=== PATIENT | female | born 1980 | race African-American/Black ===

== ENCOUNTER 2017-05-11 02:45 | Emergency (ER) | payer OTHER ==
--- NOTE | 2017-05-11 03:11 | PDOC ---
History of Present Illness - General Exam Limitations: No Limitations - History of Present Illness Initial Comments: 05/11/17 03:55 Patient is a 36 year old female with a significant past medical history of Pheochromocytoma who presents to the ED with complaints of intermittent chest pain that began 2 weeks ago. Patient reports chest pain began 2 weeks ago, but did not come to ED for evaluation because she did not believe it ot be severe a its initial start. She reports chest pain is a stabbing, midsternal chest pain rated an 8/10 at its worst and 4/10 when beginning to subside. Patient reports chest pain is currently rated at a 3/10 but states initially was intense enough to wake her from sleep, prompting her to visit the ED for evaluation. Patient reports having both fallopian tubes removed and does not believe is . Denies SOB. Denies fever, chills. Denies contact with sick individuals, out of state travel. Denies nausea, vomiting. Denies any other symptoms. Allergies: None Social history: No smoking. No alcohol. No illicit drugs. Surgical history cholecystectomy, pheochromocytoma in past - s/p resection PMD: Not on staff <Harpreet Prieto - Last Filed: 05/11/17 05:57> - General History Source: Patient <JulienReed sharp - Last Filed: 05/11/17 06:00> - General Stated Complaint: CHEST DISCOMFORT Time Seen by Provider: 05/11/17 02:52 Past History <Harpreet Prieto - Last Filed: 05/11/17 05:57> - Past Medical History Asthma: No Cancer: No Cardiac Disorders: No Diabetes: No HTN: No Seizures: No Thyroid Disease: No - Surgical History Cholecystectomy: Yes (2000) - Reproductive History (#): 5 Para: 2 Cervical CA: No Dysfunctional Uterine Bleeding: No Ectopic : No Endometrial CA: No Polycystic Ovaries: Yes Therapeutic (s) & number: Yes (1) Tubal Ligation: No Spontaneous : 3 - Suicide/Smoking/Psychosocial Hx Smoking Status: No Smoking History: Never smoked Have you smoked in the past 12 months: No Number of Cigarettes Smoked Daily: 0 Hx Alcohol Use: No Drug/Substance Use Hx: No Substance Use Type: None Hx Substance Use Treatment: No <Reed Akins - Last Filed: 05/11/17 06:00> - Past Medical History Allergies/Adverse Reactions: Allergies Allergy/AdvReac Type Severity Reaction Status Date / Time No Known Allergies Allergy Verified 05/11/17 03:14 Review of Systems - Review of Systems Able to Perform ROS?: Yes Comments:: 05/11/17 03:55 CONSTITUTIONAL: Absent: fever, chills, diaphoresis, generalized weakness, malaise, loss of appetite HEENT: Absent: rhinorrhea, nasal congestion, throat pain, throat swelling, difficulty swallowing, mouth swelling, ear pain, eye pain, visual Changes CARDIOVASCULAR: +Chest pain. Absent: syncope, palpitations, irregular heart rate, lightheadedness, peripheral edema RESPIRATORY: Absent: cough, shortness of breath, dyspnea with exertion, orthopnea, wheezing, stridor, hemoptysis GASTROINTESTINAL: Absent: abdominal pain, abdominal distension, nausea, vomiting, diarrhea, constipation, melena, hematochezia GENITOURINARY: Absent: dysuria, frequency, urgency, hesitancy, hematuria, flank pain, genital pain MUSCULOSKELETAL: Absent: myalgia, arthralgia, joint swelling SKIN: Absent: rash, itching, pallor HEMATOLOGIC/IMMUNOLOGIC: Absent: easy bleeding, easy bruising, lymphadenopathy, frequent infections ENDOCRINE: Absent: unexplained weight gain, unexplained weight loss, heat intolerance, cold intolerance NEUROLOGIC: Absent: headache, focal weakness or paresthesias, dizziness, unsteady gait, seizure, mental status changes, bladder or bowel incontinence PSYCHIATRIC: Absent: anxiety, depression, suicidal or homicidal ideation, hallucinations. All Other Systems: Reviewed and Negative <Harpreet Prieto - Last Filed: 05/11/17 05:57> *Physical Exam - Vital Signs Last Vital Signs Temp Pulse Resp BP Pulse Ox 75 18 106/67 100 05/11/17 02:45 05/11/17 02:45 05/11/17 02:45 05/11/17 02:45 - Physical Exam Comments: 05/11/17 03:55 GENERAL: Well developed, well nourished. Awake and alert. In no acute distress. HEENT: Normocephalic, atraumatic. PERRLA, EOMI. No conjunctival pallor. Sclerae are non -icteric. Moist mucous membranes. Oropharynx is clear. NECK: Supple. Full ROM. No JVD. Carotid pulses 2+ and symmetric, without bruits. No thyromegaly. No lymphadenopathy. CARDIOVASCULAR: Regular rate and rhythm. No murmurs, rubs, or gallops. Distal pulses are 2+ and symmetric. PULMONARY: No evidence of respiratory distress. Lungs clear to auscultation bilaterally. No wheezing, rales or rhonchi. ABDOMINAL: Soft. Non-tender. Non-distended. No rebound or guarding. No organomegaly. Normoactive bowel sounds. MUSCULOSKELETAL Normal range of motion at all joints. No bony deformities or tenderness. No CVA tenderness. EXTREMITIES: No cyanosis. No clubbing. No edema. No calf tenderness. SKIN: Warm and dry. Normal capillary refill. No rashes. No jaundice. NEUROLOGICAL: Alert, awake, appropriate. Cranial nerves 2-12 intact. No deficits to light touch and temperature in face, upper extremities and lower extremities. No motor deficits in the in face, upper extremities and lower extremities. Normoreflexic in the upper and lower extremities. Normal speech. Toes are downgoing bilaterally. Gait is normal without ataxia. PSYCHIATRIC: Cooperative. Good eye contact. Appropriate mood and affect. <Harpreet Prieto - Last Filed: 05/11/17 05:57> Heart Score/ECG Review - ECG Intrepretation Comment:: 05/11/17 03:30 Sinus bradycardia Otherwise normal ECG <Harpreet Prieto - Last Filed: 05/11/17 05:57> ED Treatment Course - LABORATORY CBC & Chemistry Diagram: 05/11/17 03:12 05/11/17 03:12 - RADIOLOGY Radiograph Interpretation: 05/11/17 05:58 Exam: CT CTA Chest Impression: No evidence of acute pathology <Harpreet Prieto - Last Filed: 05/11/17 05:57> - LABORATORY CBC & Chemistry Diagram: 05/11/17 03:12 05/11/17 03:12 <Reed Akins - Last Filed: 05/11/17 06:00> Medical Decision Making - Medical Decision Making 05/11/17 05:57 Dr. Akins: The scribe's documentation has been prepared under my direction and personally reviewed by me in its entirery. I confirm that the note above accurately reflects all work, treatment, procedures, and medical decision making performed by me. <Reed Akins - Last Filed: 05/11/17 06:00> *DC/Admit/Observation/Transfer - Attestations Scribe Attestion: 05/11/17 03:55 Documentation prepared by Harpreet Prieto, acting as medical billing supervisor for Reed Akins MD/DO. <Harpreet Prieto - Last Filed: 05/11/17 05:57> - Discharge Dispostion Admit: No <Reed Akins - Last Filed: 05/11/17 06:00> Diagnosis at time of Disposition: Chest pain Qualifiers: Chest pain type: precordial pain Qualified Code(s): R07.2 - Precordial pain - Discharge Dispostion Disposition: HOME Condition at time of disposition: Stable - Referrals Referrals: STAFF,NOT ON [Primary Care Provider] - Fawad ePña MD [Staff Physician] - Dale Tripp MD [Staff Physician] - - Patient Instructions Printed Discharge Instructions: DI for Chest Pain - Post Discharge Activity Forms/Work/School Notes: Back to Work
[2017-05-11 03:18] VITALS: BP 106/67; PULSE 75; BMI 22.4
[2017-05-11 03:28] LABS: BASOPHIL 0.7 % (0-2.0); MCH 30.9 pg (25.7-33.7); MCHC 33.6 g/dl (32.0-36.0); MEAN CELL VOLUME 91.9 fl (80-96); MEAN PLT VOLUME 7.9 fl (7.5-11.1); NEUTROPHILS 48.8 % (42.8-82.8); PLATELET COUNT 263 K/MM3 (134-434); RDW 12.7 % (11.6-15.6); WHITE BLOOD COUNT 6.5 K/mm3 (4.0-10.0)
[2017-05-11] MEDS ORDERED: ASPIRIN 81 MG CHEWABLE TABLETS PO ONE (03:36)
[2017-05-11 03:46] LABS: INR 0.99 (0.82-1.09); PROTHROMBIN TIME (PATIENT) 11.2 SEC (9.98-11.88)
[2017-05-11] MEDS ORDERED: ASPIRIN COATED 81 MG TABLET.EC ONE (03:51)
[2017-05-11 03:56] LABS: ALBUMIN 3.5 g/dl (3.4-5.0); ANION GAP 8 (8-16); BILIRUBIN,TOTAL 0.3 mg/dL (0.2-1.0); CALCIUM 8.7 mg/dL (8.5-10.1); CO2 26 mmol/L (21-32); CREATININE 0.7 mg/dL (0.55-1.02); GLUCOSE,RANDOM 85 mg/dL (74-106); SGOT/AST 5 U/L (15-37); SGPT/ALT 17 U/L (12-78); TOT PROT 6.7 g/dl (6.4-8.2)
[2017-05-11 03:58] LABS: ALK PHOS 44 U/L (45-117); CPK 78 IU/L (26-192); TROPONIN I < 0.02 ng/ml (0.00-0.05)
--- NOTE | 2017-05-11 10:20 | EKG ---
Test Reason : Blood Pressure : / mmHG Vent. Rate : 058 BPM Atrial Rate : 058 BPM P-R Int : 148 ms QRS Dur : 078 ms QT Int : 402 ms P-R-T Axes : 040 072 065 degrees QTc Int : 394 ms SINUS BRADYCARDIA OTHERWISE NORMAL ECG WHEN COMPARED WITH ECG OF 09-MAY-2015 17:44, NO SIGNIFICANT CHANGE WAS FOUND Confirmed by BHANU GRANGER MD ([id number]) on 05/11/2017 10:19:44 AM Referred By: Confirmed By:BHANU GRANGER MD
== END 2017-05-11 06:02 | disposition home or self-care (01) ==
LOC: JER 02:45
DX: R07.2 Precordial pain (principal); D35.00 Benign neoplasm of unspecified adrenal gland
CPT/HCPCS: 36415; 71010-TC; 71275-TC; 80053; 82550; 84484; 84703; 85025; 85379; 85610; 93005; 93010; 99284-25

== ENCOUNTER 2018-03-12 09:31 | Emergency (ER) | payer OTHER ==
[2018-03-12 09:56] VITALS: BP 100/63; PULSE 58; TEMP 98.4; BMI 24.3
--- NOTE | 2018-03-12 10:40 | PDOC ---
History of Present Illness - General Chief Complaint: Injury Stated Complaint: INJURD LEFT TOE Time Seen by Provider: 03/12/18 10:33 History Source: Patient Exam Limitations: No Limitations - History of Present Illness Initial Comments: CHIEF COMPLAINT: 37 y/o female c/o painful left 4th toe since this morning. HISTORY OF PRESENT ILLNESS: patient states she woke up this morning and stubbed her toe. It's been swollen and painful ever since. Vital signs on arrival are within normal limits. REVIEW OF SYSTEMS: GENERAL/CONSTITUTIONAL: No fever/chills. No weakness. No weight change. MUSCULOSKELETAL: +left 4th toe pain and swelling. No neck or back pain. SKIN: No rash or easy bruising. NEUROLOGIC: No headache, vertigo, loss of consciousness, or loss of sensation. PHYSICAL EXAM: VITAL_SIGNS: within normal limits GENERAL_APPEARANCE: alert, cooperative, no obvious discomfort. MENTAL_STATUS: speech clear, oriented X 3, responds appropriately to questions. NEURO: motor intact and sensory intact in injured extremity. EXTREMITIES: good pulse in injured extremity. Mild swelling and TTP of left 4th toe. No crepitus or obvious deformities. No ecchymosis. SKIN: warm, dry, good color. Past History - Past Medical History Allergies/Adverse Reactions: Allergies Allergy/AdvReac Type Severity Reaction Status Date / Time No Known Allergies Allergy Verified 03/12/18 09:52 Home Medications: Ambulatory Orders NK [No Known Home Medication] 03/12/18 Asthma: No Cancer: No Cardiac Disorders: No COPD: No Diabetes: No HTN: No Seizures: No Thyroid Disease: No - Surgical History Cholecystectomy: Yes (2000) - Reproductive History (#): 5 Para: 2 Cervical CA: No Dysfunctional Uterine Bleeding: No Ectopic : No Endometrial CA: No Polycystic Ovaries: Yes Therapeutic (s) & number: Yes (1) Tubal Ligation: No Spontaneous : 3 - Immunization History Immunization Up to Date: Yes - Suicide/Smoking/Psychosocial Hx Smoking Status: No Smoking History: Never smoked Have you smoked in the past 12 months: No Number of Cigarettes Smoked Daily: 0 Hx Alcohol Use: No Drug/Substance Use Hx: No Substance Use Type: None Hx Substance Use Treatment: No *Physical Exam - Vital Signs Last Vital Signs Temp Pulse Resp BP Pulse Ox 98.4 F 58 L 18 100/63 100 03/12/18 09:52 03/12/18 09:52 03/12/18 09:52 03/12/18 09:52 03/12/18 09:52 Medical Decision Making - Medical Decision Making A/P: 37 y/o female with left 4th toe injury. Danny taped the affected toe to the left 3rd toe. Suggested patient ice it and use danny tape for comfort. The patient verbalizes understanding of all instructions, has no further questions and is awaiting discharge. *DC/Admit/Observation/Transfer Diagnosis at time of Disposition: Toe pain, left - Discharge Dispostion Disposition: HOME Condition at time of disposition: Good - Referrals - Patient Instructions Printed Discharge Instructions: DI for Toe Sprain Additional Instructions: Discharge Instructions: -Keep toe taped to toe next to it for comfort -Apply ice to affected toe to help with swelling and pain - Post Discharge Activity
== END 2018-03-12 10:43 | disposition home or self-care (01) ==
LOC: JERFT 09:31
DX: S93.515A Sprain of interphalangeal joint of left lesser toe(s), initial encounter (principal); W22.8XXA Striking against or struck by other objects, initial encounter; Y93.01 Activity, walking, marching and hiking; Y92.89 Other specified places as the place of occurrence of the external cause; Y99.8 Other external cause status
CPT/HCPCS: 99281-25

== ENCOUNTER 2019-02-12 08:38 | Emergency (ER) | payer OTHER ==
[2019-02-12 08:44] VITALS: BP 112/68; PULSE 69; TEMP 98.3; BMI 22.9
[2019-02-12] MEDS ORDERED: FAMOTIDINE 20 MG/50 ML IVPB 20 MG/50 ML MG IVPB ONE ×2 (09:13→09:35)
[2019-02-12] MEDS ORDERED: ACETAMINOPHEN 1000 MG/100 ML VIAL (NON FORMULARY) IVPB ONE (09:13)
[2019-02-12] MEDS ORDERED: SODIUM CHLORIDE 0.9% 500 ML INFUS.BAG IV ONE (09:13)
--- NOTE | 2019-02-12 09:14 | PDOC ---
History of Present Illness - General Chief Complaint: Pain, Acute Stated Complaint: ABD PAIN/ VOMITING - History of Present Illness Initial Comments: Juan Esparza is a 38yo woman with a PMH of pheochromocytoma s/p surgical excision, ovarian cyst, b/l salpingectomy (still has ovaries), s/p cholecystectomy who presents with frequent vomiting since yesterday and RLQ pain. She reports that she started having frequent vomiting yesterday and was unable to eat anything. She did not notice any blood in the vomit or green color. She also noted right lower abdominal pain; she is not sure whether she had pain anywhere else in the abdomen yesterday but says it is only RLQ today. She additionally notes a fever to 101F yesterday but took Tylenol and Motrin at home with resolution of the fever, which has not returned. She denies any diarrhea, sick contacts, change in diet, or recent travel. Ms Esparza does endorse some thick white vaginal discharge for 2-3 days that she says she thinks is a yeast infection, but she has not yet tried to treat it. She does not have any concerns about any STDs and has not noticed any other vaginal discharge, dysuria, urinary frequency, or hematuria. Past History - Past Medical History Allergies/Adverse Reactions: Allergies Allergy/AdvReac Type Severity Reaction Status Date / Time No Known Allergies Allergy Verified 02/12/19 08:44 Home Medications: Ambulatory Orders Nitrofurantoin Macrocrystal [Nitrofurantoin] 100 mg PO Q12H #6 capsule 02/12/19 Asthma: No Cancer: No Cardiac Disorders: No COPD: No Diabetes: No HTN: No Seizures: No Thyroid Disease: No - Surgical History Abdominal Surgery: (TUBAL LIGATION AND CYST REMOVED) Cholecystectomy: Yes (2000) - Reproductive History (#): 5 Para: 2 Cervical CA: No Dysfunctional Uterine Bleeding: No Ectopic : No Endometrial CA: No Polycystic Ovaries: Yes Therapeutic (s) & number: Yes (1) Tubal Ligation: No Spontaneous : 3 - Immunization History Immunization Up to Date: Yes - Suicide/Smoking/Psychosocial Hx Smoking Status: No Smoking History: Never smoked Have you smoked in the past 12 months: No Number of Cigarettes Smoked Daily: 0 Hx Alcohol Use: No Drug/Substance Use Hx: No Substance Use Type: None Hx Substance Use Treatment: No Review of Systems - Review of Systems Comments:: General: No fevers, no chills, no weight or appetite change, no malaise HEENT: No changes in vision, no changes in hearing, no congestion, no sore throat CV: No chest pain, no palpitations, no LE edema Pulm: No SOB, no cough, no wheezing GI: No nausea or vomiting, no change in bowel habits, no melena : No frequency, no urgency, no dysuria Musc: No back pain, no joint swelling, no recent injury Skin: No rash, no lesions, no erythema Endo: No excessive thirst, no heat/cold intolerance Heme: No unusual bruising or bleeding, no swollen glands Neuro: No syncope, no numbness/tingling, no focal weakness Vasc: No claudication Psych: No recent change in mood, no SI or HI *Physical Exam - Vital Signs Last Vital Signs Temp Pulse Resp BP Pulse Ox 98.3 F 69 16 112/68 100 02/12/19 08:41 02/12/19 08:41 02/12/19 08:41 02/12/19 08:41 02/12/19 08:41 - Physical Exam Comments: General: Comfortable, no acute distress HEENT: PERRL, EOMI, MMM, voice normal, normal neck ROM, no LAD Cards: RRR, no murmur appreciated Pulm: Comfortable on room air, clear to auscultation bilaterally Abd: Soft, nondistended. Moderate suprapubic > RLQ TTP. No rigidity or guarding. : Normal external genitalia. Copious thick white discharge in vaginal canal c/ w yeast. Erythema over mid cervix, no bleeding. No CMT. Difficult to determine cervical discharge 2/2 yeast. Rt adnexal TTP Ext: Atraumatic. No LE edema. WWP Skin: Normal color, no rashes or lesions Neuro: A&Ox3, CN grossly intact, normal speech, motor/sensory grossly intact and symmetric Psych: Mood appropriate to situation ED Treatment Course - LABORATORY CBC & Chemistry Diagram: 02/12/19 09:40 02/12/19 09:40 Medical Decision Making - Medical Decision Making 02/12/19 09:14 Juan Esparza is a 38yo woman with a PMH of pheochromocytoma s/p surgical excision, ovarian cyst, b/l salpingectomy (still has ovaries), s/p cholecystectomy who presents with frequent vomiting since yesterday and suprapubic v RLQ pain. She has noted thick white vaginal discharge that she thinks is a yeast infection but has no urinary complaints, change in bowel habits, or known sick contacts. - Broad DDx for suprapubic and RLQ abodminal pain including appendicitis, UTI, PID, ovarian torsion, ectopic , ruptured cyst. Viral gastroenteritis likely given frequent vomiting, but no diarrhea reported. Possible kidney stone or pyelo. - CBC, CMP, UA, UCx, urine preg, IVF, famotidine, acetaminophen - Pelvic exam to be completed 02/12/19 10:49 - Pelvic exam w/ copious thick white discharge c/w yeast. Fluconazole ordered. Cervical erythema likely secondary to yeast infection but GC chlamydia sent - Rt adnexal TTP on exam; TVUS ordered - Labs reviewed. No concerning abnormalities 02/12/19 12:27 - TVUS completed. Shows slight endometrial thickening at 13mm but no other acute abnomalities. b/l ovaries w/o pathology - Need to obtain UA - May need CT if not improved 02/12/19 13:44 - Continued TTP on exam, suprapubic clearly worse than RLQ currently - Given unremarkable labs, TVUS without concerning findings, will send for CT 02/12/19 15:22 - CT done, radiology report completed. Notes small L ovarian cyst, post- surgical changes. No acute or chronic changes appreciated other than small hypodensity in liver that is unlikely to be related to the patient's currently lower abdominal pain - No additional vomiting or upper abdominal pain since arrival in the ED this morning. Able to eat a sandwich, drink juice without any difficulty. Likely gastritis, possibly viral, that appears to have resolved. - Discussed results at length with patient. May have suprapubic pain secondary to acute cystitis as she had bacteria in her urine. Discussed possible care options including antibiotic treatment for UTI with strict return precautions and PMD follow up, which Ms Esparza agrees with. Will give first dose of macrobid in ED prior to discharge. - Return precautions discussed at length. - Pt to be called with final results of her GC/chlamydia and UCx. Discussed with Dr John Vazquez PGY2 *DC/Admit/Observation/Transfer Diagnosis at time of Disposition: Vaginal yeast infection UTI (urinary tract infection) Qualifiers: Urinary tract infection type: acute cystitis Hematuria presence: without hematuria Qualified Code(s): N30.00 - Acute cystitis without hematuria - Discharge Dispostion Disposition: HOME Condition at time of disposition: Stable Decision to Admit order: No - Prescriptions Prescriptions: Nitrofurantoin Macrocrystal [Nitrofurantoin] 100 mg PO Q12H #6 capsule - Referrals Schedule a call back: GC/chlamydia, UCX Referrals: ON STAFF,NOT [Primary Care Provider] - [facility] [Provider Group] - Patient Instructions Printed Discharge Instructions: DI for Vaginal Yeast Infection, DI for Acute Cystitis Additional Instructions: Discharge Instructions: You were seen in the emergency department for lower abdominal pain. You had blood tests, an ultrasound, and a CT scan. These did not show any concerning changes. You also had a urine analysis which showed bacteria. Your pain is most likely due to bladder irritation from a urinary tract infection, called cystitis. You also were found to have a yeast infection, which may be causing addiitonal irritation. You had a gonorrhea/chlamydia test sent and will be called with results. Home Care: - You have been prescribed an antibiotic, Macrobid (nitrofurantoin) that should be taken twice daily for 3 days. - You were already given the treatment for your yeast infection - You may use over the counter medications as needed for pain at home. 650- 1000mg acetaminophen (Tylenol) or 600mg ibuprofen (Motrin or Advil) can be used every 6-8 hours. If needed for continued pain, these medications may be alternated every 3-4 hours. For example, if you take ibuprofen at 9am, you may take acetaminophen at noon, ibuprofen at 3pm, etc. - Try using a heating pad for additional pain control - Follow up with your primary doctor and regular electronics supervisor within the next week. If you need a new primary doctor, you have been given contact information for the [facility]. - Return to the closest emergency room if you have worsening symptoms, severe abdominal pain, persistent vomiting, you become dehydrated, you develop fever to 101F or higher, or you have any other medical emergency. - Post Discharge Activity Forms/Work/School Notes: Back to Work
--- NOTE | 2019-02-12 09:32 | PDOC ---
Attending Attestation - Resident Resident Name: Funmi Vazquez - ED Attending Attestation I have performed the following: I have examined & evaluated the patient, The case was reviewed & discussed with the resident, I agree w/resident's findings & plan, Exceptions are as noted - HPI HPI: 02/12/19 09:30 38y F hx of pheochromocytoma (sp resection), tubal ligation, R ovarian cyst (sp drainage), presents with RLQ pain since last night that is constant, cramping, nonradiating associated with 3 episodes of nbnb vomiting with subjective fever and slight dysuria today. Denies any vag bleeding or discharge but notes some mild vag irritation. currently sexually active. Pt notes pain feels similar to previous when she had her ovarian cyst. Pt denies any cp, sob, back pain, diarrhea, melena, bpr, dysuria, frequency. - Physicial Exam PE: 02/12/19 10:44 General: No acute distress HEENT: EOMI CHEST: cta b/l, card: rrr, no mrg abd: mild RLQ/adnexal tenderness, no cva tenderenss, norebound/guarding - Medical Decision Making 02/12/19 10:46 ddx -torsion, ovarian cyst, uti, appendicits will obtain blood work, gc, ua, will start with ovarian US fluids, analgesia
[2019-02-12] MEDS ORDERED: ACETAMINOPHEN INJECTION 100 ML IVPB ONE (09:34)
[2019-02-12 09:55] LABS: BASO % 0.8 % (0-2.0); HEMATOCRIT 40.3 % (32.4-45.2); HEMOGLOBIN 13.5 GM/dL (10.7-15.3); MCH 31.1 pg (25.7-33.7); MCHC 33.5 g/dl (32.0-36.0); MEAN CELL VOLUME 92.8 fl (80-96); MEAN PLT VOLUME 8.1 fl (7.5-11.1); NEUT % 71.2 % (42.8-82.8); PLATELET COUNT 275 K/MM3 (134-434); RBC 4.35 M/mm3 (3.60-5.2); RDW 13.2 % (11.6-15.6); WHITE BLOOD COUNT 8.2 K/mm3 (4.0-10.0)
[2019-02-12] MEDS ORDERED: FLUCONAZOLE 150 MG TABLET PO ONE (10:04)
[2019-02-12 10:25] LABS: ALBUMIN 3.7 g/dl (3.4-5.0); BILIRUBIN,TOTAL 0.6 mg/dL (0.2-1); BLOOD UREA NITROGEN 6.6 mg/dL (7-18); CALCIUM 9.5 mg/dL (8.5-10.1); CREATININE 0.7 mg/dL (0.55-1.3); POTASSIUM 3.6 mmol/L (3.5-5.1)
[2019-02-12] MEDS ORDERED: FLUCONAZOLE 100 MG TABLET (UD) ONE (10:42)
[2019-02-12 12:35] LABS: EPI CELLS >36 /HPF (0-5/HPF); HYALINE CASTS 29 /lpf (0-8); PH,URINE >= 9.0 (5.0-8.0); URINE APPEARANCE CLEAR; URINE BACTERIA 524.2 /hpf (NEGATIVE); URINE BILIRUBIN NEGATIVE (NEGATIVE); URINE COLOR YELLOW; URINE GLUCOSE (UA) NEGATIVE (NEGATIVE); URINE KETONE NEGATIVE (NEGATIVE); URINE LEUK ESTERASE 2+ (NEGATIVE); URINE NITRITE NEGATIVE (NEGATIVE); URINE PROTEIN NEGATIVE (NEGATIVE); URINE RBC 3 /hpf (0-4); URINE UROBILINOGEN 0.2 mg/dL (0.2-1.0); URINE WBC 5 /hpf (0-5)
[2019-02-12] MEDS ORDERED: NITROFURANTOIN MACROCRYSTAL 50 MG CAPSULE (FP) PO SCH (16:00)
[2019-02-12] MEDS ORDERED: NITROFURANTOIN MACROCRYSTAL 50 MG CAPSULE (FP) ONE (16:14)
== END 2019-02-12 17:02 | disposition home or self-care (01) ==
LOC: JER 08:38
PROC: 3E033GC Introduction of Other Therapeutic Substance into Peripheral Vein, Percutaneous Approach (ICD-10-PCS; principal; 2019-02-12)
PROC: 3E033NZ Introduction of Analgesics, Hypnotics, Sedatives into Peripheral Vein, Percutaneous Approach (ICD-10-PCS; 2019-02-12)
DX: B37.3 Candidiasis of vulva and vagina (principal); N30.00 Acute cystitis without hematuria
CPT/HCPCS: 36415; 74177-TC; 76830-TC; 80053; 81003; 84703; 85025; 87086; 87491; 87591; 96365; 96375; 99283-25; J0131

== ENCOUNTER 2019-06-19 15:44 | Emergency (ER) | payer OTHER ==
--- NOTE | 2019-06-19 15:58 | PDOC ---
History of Present Illness - General Chief Complaint: Respiratory Stated Complaint: FLU LIKE ILLNESS Time Seen by Provider: 06/19/19 15:54 History Source: Patient Exam Limitations: No Limitations - History of Present Illness Initial Comments: Juan Esparza is a 39 yo woman with a PMH of pheochromocytoma s/p surgical excision, ovarian cyst, b/l salpingectomy (still has ovaries), s/p cholecystectomy who presents to the [place] [facility] with 2 days of a fever, body aches, myalgias, left sided pleuritic chest pain worsened every time she coughs and is concerned that she has the flu. Her symptoms began on Tuesday. Her 5 year old child has been diagnosed with flu A positive at home and is now on Tamiflu. The patient took tylenol before presentation to the ER. She states she cannot be as her reproductive system has been removed. The patient denies recent travel/surgeries/immobility, lower extremity edema, calf pain or tenderness, tobacco use, hormone use, personal or family history of thrombosis. PCP: Tyshawn Craft - Not on [facility] staff OB: Zuleika PSH: pheochromocytoma removal, ovarian cyst removal, cholecystectomy Social Hx: Denies smoking, drinking, or other substance usage Allergies: NKA, NKDA Past History - Past Medical History Allergies/Adverse Reactions: Allergies Allergy/AdvReac Type Severity Reaction Status Date / Time No Known Allergies Allergy Verified 02/12/19 08:44 Home Medications: Ambulatory Orders Oseltamivir Phosphate [Tamiflu -] 75 mg PO BID #10 capsule 06/19/19 Asthma: No Cancer: No Cardiac Disorders: No COPD: No Diabetes: No HTN: No Seizures: No Thyroid Disease: No - Surgical History Abdominal Surgery: (TUBAL LIGATION AND CYST REMOVED) Cholecystectomy: Yes (2000) - Reproductive History (#): 5 Para: 2 Cervical CA: No Dysfunctional Uterine Bleeding: No Ectopic : No Endometrial CA: No Polycystic Ovaries: Yes Therapeutic (s) & number: Yes (1) Tubal Ligation: No Spontaneous : 3 - Immunization History Immunization Up to Date: Yes - Psycho Social/Smoking Cessation Hx Smoking Status: No Smoking History: Never smoked Have you smoked in the past 12 months: No Number of Cigarettes Smoked Daily: 0 Hx Alcohol Use: No Drug/Substance Use Hx: No Substance Use Type: None Hx Substance Use Treatment: No Review of Systems - Review of Systems Able to Perform ROS?: Yes Comments:: CONSTITUTIONAL: Present: fever, chills, fatigue EYES: Absent: visual changes ENT: Absent: ear pain, no sore throat CARDIOVASCULAR: Present: Chest pain Absent: no palpitations RESPIRATORY: Present: cough, SOB GI: Absent: abdominal pain, no nausea, no vomiting, no constipation, no diarrhea GENITOURINARY: Absent: dysuria, no frequency, no hematuria MUSKULOSKELETAL: Present: Back pain, myalgia Absent: no arthralgia SKIN: Absent: rash NEURO: Absent: headache *Physical Exam - Physical Exam GENERAL: Well-appearing, well-nourished. No apparent distress. HEENT: Normocephalic, atraumatic. PERRL, EOM intact. CARDIOVASCULAR: Normal S1, S2. Regular rate and rhythm. PULMONARY: No evidence of respiratory distress. Lungs clear to auscultation bilaterally. No wheezing, rales or rhonchi. ABDOMEN: Soft, non-distended, non-tender. EXTREMITIES: Normal ROM in all four extremities. No gross deformities. SKIN: Warm, dry. No rash NEUROLOGICAL: No focal neurological deficits. Medical Decision Making - Medical Decision Making Juan Esparza is a 39 yo woman with a PMH of pheochromocytoma s/p surgical excision, ovarian cyst, b/l salpingectomy (still has ovaries), s/p cholecystectomy who presents to the [place] ER with 2 days of a fever, body aches, myalgias, left sided pleuritic chest pain worsened every time she coughs and is concerned that she has the flu. Her symptoms began on Tuesday. Her 5 year old child has been diagnosed with flu A positive at home and is now on Tamiflu. The patient took tylenol before presentation to the ER. She states she cannot be as her reproductive system has been removed. The patient denies recent travel/surgeries/immobility, lower extremity edema, calf pain or tenderness, tobacco use, hormone use, personal or family history of thrombosis. Vital Signs Temp Pulse Resp BP Pulse Ox 98.8 F 86 16 97/69 99 06/19/19 15:46 06/19/19 15:46 06/19/19 15:46 06/19/19 15:46 06/19/19 15:46 DDx IBNLT: Influenza, URI, PNA, PE, pneumothorax, ACS MDM: Patient is PERC negative making PE less likely. Plan: Flu swab, CXR, analgesia, EKG, re-assess, +/- oseltamavir EKG: NS, no ST elevations or depressions, no tachycardia Flu swab: Positive for flu A CXR: Clear aerated lungs, no acute process. Re-assessment: Patient feels better after NSAID - will treat presumptively as tamiflu given close contact Disposition: Home with tamiflu, motrin for pain control. Discharge - Discharge Information Problems reviewed: Yes Clinical Impression/Diagnosis: Influenza Condition: Improved Disposition: HOME - Admission No - Additional Discharge Information Prescriptions: Oseltamivir Phosphate [Tamiflu -] 75 mg PO BID #10 capsule - Follow up/Referral [place] [facility] [place] [facility] [place] Group] - Patient Discharge Instructions Patient Printed Discharge Instructions: Influenza (Alternative Therapy), Influenza Additional Instructions: You came into the ER with fevers and body aches and we believe you have the flu. We are sending a medication to your pharmacy - tamiflu - for you to take twice a day for the next 5 days. 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 Take advil/motrin/ibuprofen as needed for pain control. Drink plenty of fluids. Please schedule a follow up appointment with your primary care doctor in the next 3 to 5 days. Come back to the ER immediately if you are uncomfortable, in pain, or have any other new or worsening concerns. Thank you for coming to the [place] ER. We hope you feel better soon! Print Language: [place]AP[place] - Post Discharge Activity Work/Back to School Note: Back to Work
[2019-06-19] MEDS ORDERED: IBUPROFEN 600 MG TABLET (FP) PO ONE ×2 (15:59→16:23)
[2019-06-19 16:14] VITALS: BP 97/69; PULSE 86; TEMP 98.8; BMI 22.9
--- NOTE | 2019-06-19 16:15 | PDOC ---
Attending Attestation - Resident Resident Name: Paulie Blevins - ED Attending Attestation I have performed the following: I have examined & evaluated the patient, The case was reviewed & discussed with the resident, I agree w/resident's findings & plan, Exceptions are as noted - HPI HPI: 06/19/19 16:19 39y F hx of pheo sp resection, presents with 2 days of body aches, cp, cough, fevers. Son was recently diagnosed with the flu. Pt deneis any sob, hemoptysis, leg swelling,m abd pain, n/v, diaphoersis. - Physicial Exam PE: 06/19/19 16:36 Physical exam GENERAL: The patient is awake, alert, and fully oriented, Nontoxic - in no acute distress. HEAD: Normocephalic, atraumatic. EYES: extraocular movements intact, sclera anicteric, conjunctiva clear. ENT: Normal voice, Moist mucous membranes, Posterior pharynx without significant erythema no exudates, symmetric appearing NECK: Normal range of motion, supple LUNGS: Breath sounds equal, clear to auscultation bilaterally. No wheezes, no rhonchi, no rales. HEART: Regular rate and rhythm, normal S1 and S2 without murmur, rub or gallop. ABDOMEN: Soft, nontender, No guarding, no rebound. No CVA tenderness EXTREMITIES: Normal range of motion, no edema. neg homans, no calf tenderness NEUROLOGICAL: No facial assymetry, Normal speech, PSYCH: Normal mood, normal affect. SKIN: Warm, Dry, normal turgor, - Medical Decision Making 06/19/19 16:37 sspect flu will treat with tamiflu will dc with supportive care and pmd fu Heart Score/ECG Review - ECG Impressions Comment:: 06/19/19 17:38 Twelve-lead EKG was performed and reviewed by me. There is normal sinus rhythm with a normal rate. Rate of 73 The axis is normal. The intervals are normal. There is normal R wave progression There are no ST or T wave abnormalities. Impression: Normal twelve-lead EKG
[2019-06-19] MEDS ORDERED: OSELTAMIVIR PHOSPHATE 75 MG CAPSULE PO ONE (16:25)
[2019-06-19] MEDS ORDERED: OSELTAMIVIR PHOSPHATE 75 MG CAPSULE ONE (16:29)
--- NOTE | 2019-06-20 10:06 | EKG ---
Test Reason : Blood Pressure : / mmHG Vent. Rate : 073 BPM Atrial Rate : 073 BPM P-R Int : 134 ms QRS Dur : 074 ms QT Int : 356 ms P-R-T Axes : 040 070 050 degrees QTc Int : 392 ms NORMAL SINUS RHYTHM NORMAL ECG WHEN COMPARED WITH ECG OF 11-MAY-2017 02:55, NO SIGNIFICANT CHANGE WAS FOUND Confirmed by BHANU GRANGER MD ([id number]) on 06/20/2019 10:06:14 AM Referred By: DR LEGGETT Confirmed By:BHANU GRANGER MD
== END 2019-06-19 17:53 | disposition home or self-care (01) ==
LOC: FER 15:44
DX: J11.1 Influenza due to unidentified influenza virus with other respiratory manifestations (principal); D35.00 Benign neoplasm of unspecified adrenal gland
CPT/HCPCS: 71046-TC-FY; 87804; 93005; 99282-25

== ENCOUNTER 2020-09-03 16:39 | Emergency (ER) | payer OTHER ==
[2020-09-03 17:03] VITALS: BP 108/70; PULSE 88; TEMP 99.2; BMI 21.6
[2020-09-03] MEDS ORDERED: SODIUM CHLORIDE 0.9% 500 ML INFUS.BAG IV ONE (17:26)
[2020-09-03] MEDS ORDERED: ACETAMINOPHEN 1000 MG/100 ML VIAL (NON FORMULARY) IVPB ONE (17:26)
[2020-09-03] MEDS ORDERED: ACETAMINOPHEN INJECTION 100 ML IVPB ONE ×2 (17:57→18:05)
[2020-09-03 18:04] LABS: BASO % 2.4 % (0-2.0); EOS % 12.3 % (0-4.5); HEMOGLOBIN 12.3 GM/dl (10.7-15.3); LYMPH % 28.9 % (8-40); MCH 31.3 pg (25.7-33.7); MCHC 32.3 g/dl (32.0-36.0); MEAN CELL VOLUME 96.9 fl (80-96); MEAN PLT VOLUME 7.8 fl (7.5-11.1); MONO % 7.2 % (3.8-10.2); NEUT % 49.2 % (42.8-82.8); PLATELET COUNT 404 K/MM3 (134-434); RBC 3.92 M/mm3 (3.60-5.2); RDW 13.9 % (11.6-15.6); WHITE BLOOD COUNT 6.6 K/mm3 (4.0-10.8)
[2020-09-03 18:05] LABS: BILIRUBIN,TOTAL 0.5 mg/dl (0.2-1); CALCIUM 9.6 mg/dl (8.5-10); CREATININE 0.6 mg/dl (0.55-1.3); POTASSIUM 3.8 mmol/L (3.5-5.1); TOT PROT 7.2 g/dl (6.4-8.2)
== END 2020-09-03 19:18 | disposition home or self-care (01) ==
LOC: FER 16:39
PROC: 3E0333Z Introduction of Anti-inflammatory into Peripheral Vein, Percutaneous Approach (ICD-10-PCS; principal; 2020-09-03)
DX: R10.9 Unspecified abdominal pain (principal)
CPT/HCPCS: 36415; 74177-TC; 80053; 81003; 83690; 85025; 87086; 99285-25; J0131; Q9967

== ENCOUNTER 2021-01-26 18:42 | Emergency (ER) | payer OTHER ==
[2021-01-26 19:03] VITALS: BP 109/76; PULSE 66; TEMP 98.3; BMI 25.4
== END 2021-01-26 20:43 | disposition home or self-care (01) ==
LOC: MERGE 18:42 → FER 18:42
DX: S93.401A Sprain of unspecified ligament of right ankle, initial encounter (principal); X50.9XXA Other and unspecified overexertion or strenuous movements or postures, initial encounter
CPT/HCPCS: 73610-TC-RT-FY; 73630-TC-RT-FY; 99283-25